=== PATIENT | male | born 1975 | race Caucasian/White ===

== ENCOUNTER 2023-08-12 18:51 | Emergency (ER) | payer MEDICAID ==
[~2023-08-12] VITALS: Ht 165.1 cm; Wt 75.0 kg
[~2023-08-12 18:51] MED LIST: NOCURR
[2023-08-12] MEDS: IBUPROFEN 600 MG TABLET PO ONE (22:54)
[2023-08-12] MEDS: LIDOCAINE 5% TRANSDERMAL PATCH TD ONE (22:57)
[2023-08-12 23:43] VITALS: BP 133/85; PULSE 73; RESP 18; TEMP 97.3
== END 2023-08-13 02:31 | disposition home or self-care (01) ==
LOC: EMS 18:52
DX: M54.9 Dorsalgia, unspecified (principal); M54.2 Cervicalgia; F17.210 Nicotine dependence, cigarettes, uncomplicated; F12.90 Cannabis use, unspecified, uncomplicated; V49.88XA Car occupant (driver) (passenger) injured in other specified transport accidents, initial encounter; Y93.89 Activity, other specified; Y92.89 Other specified places as the place of occurrence of the external cause; Y99.8 Other external cause status
CPT/HCPCS: 72040; 72100; 99284; Z7502; Z7610

== ENCOUNTER 2023-08-21 12:02 | Emergency (ER) | payer MEDICAID ==
[~2023-08-21] VITALS: Ht 172.7 cm; Wt 81.4 kg
[2023-08-21 12:28] VITALS: TEMP 98.5
[2023-08-21] MEDS ORDERED: IBUP-1492 PO (13:23)
[2023-08-21] MEDS ORDERED: ACET-3385 PO (13:24)
[2023-08-21 13:30] VITALS: BP 120/76; PULSE 85; RESP 18
== END 2023-08-21 14:27 | disposition home or self-care (01) ==
LOC: EMS 12:02
DX: M79.18 Myalgia, other site (principal); F17.210 Nicotine dependence, cigarettes, uncomplicated; F12.90 Cannabis use, unspecified, uncomplicated
CPT/HCPCS: 99282; Z7502